=== PATIENT | male | born 1960 | race Caucasian/White ===

== ENCOUNTER 2021-10-30 14:26 | Outpatient (CLI) | payer OTHER, SELFPAY ==
--- NOTE | ~2021-10-30 | CT_ITS ---
EXAMINATION: CT abdomen pelvis wo/w con DATE: 10/30/2021 15:51 INDICATION: Hematuria. TECHNIQUE: Computed tomography (CT) of the abdomen and pelvis was performed without and with intraven ous contrast using a total of 130 mL Omnipaque-350 intravenous contrast with a double-bolus technique for simultaneous opacification of the renal parenchyma and renal collecting system. Automated exposu re control and iterative reconstruction technique were employed. The dose-length product was 1311.40 mGy-cm. COMPARISON: None FINDINGS: The visualized portions of the lung bases are clear without pneumonia or pleural effusion. The heart size is normal. No pericardial effusion. The liver, gallbladder, and spleen are normal. There is inco mplete pancreas divisum. The adrenal glands are normal. There are cysts in the kidneys measuring up t o 7 mm on the left. There is no urolithiasis. The ureters are well opacified and are normal. The blad brittney is normal. There are bilateral inguinal hernias containing fat. There is diverticulosis of the co rc without evidence of diverticulitis. There are no dilated loops of bowel. The appendix is normal. There are no pathologically enlarged lymph nodes. There is no free intraperitoneal fluid. There is de xtroscoliosis and severe spondylosis of lower lumbar spine. IMPRESSION: 1. No etiology for hematuria. Reviewed, dictated and finalized at location A. [employer]
[2021-10-30 15:28] LABS: Estimated Glomerular Filt Rate > 60
== END 2021-10-30 14:27 | disposition home or self-care (01) ==
LOC: ANHIMG 14:34
PROVIDERS: Visit Provider Urology
DX: R31.9 Hematuria, unspecified (principal)
CPT/HCPCS: 74178; Q9967

== ENCOUNTER 2024-05-11 14:43 | Emergency (ER) | payer OTHER, SELFPAY ==
--- NOTE | ~2024-05-11 | CT_ITS ---
EXAMINATION: CT abdomen pelvis w con DATE: 05/11/2024 15:25 INDICATION: Abdominal pain. TECHNIQUE: Computed tomography (CT) of the abdomen and pelvis was performed with 100 mL Omnipaque 350 intravenous contrast. Automated exposure control and iterative reconstruction technique were employe d. The dose-length product was 398.96 mGy-cm. COMPARISON: CT abdomen pelvis 10/30/2021 FINDINGS: The visualized portions of the lung bases are clear without pneumonia or pleural effusion. The heart size is normal. No pericardial effusion. The liver, gallbladder, spleen, pancreas, and adre nal glands are normal. There are cysts in the kidneys measuring up to 5 mm. There are bilateral ingui nal hernias containing fat. There is diverticulosis of the colon without evidence of diverticulitis. The appendix is normal. 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 There are no pathologically enlarged lymph node s. There is no free intraperitoneal fluid. There is lumbar levoscoliosis and severe spondylosis. IMPRESSION: 1. Bilateral inguinal hernias containing fat. 2. Perirectal varices. Reviewed, dictated and finalized at location A.
[2024-05-11 14:48] VITALS: BP 154/100; PULSE 69; RESP 16; O2SAT 99
[2024-05-11 15:06] LABS: Basophils Absolute Auto 0.1 K/mm3 (0.0-0.1); Basophils Percent Auto 0.7 % (0.2-1.2); Eosinophils Absolute Auto 0.3 K/mm3 (0-0.3); Eosinophils Percent Auto 4.5 % (0-4.4); Hematocrit 40.7 % (42.0-52.0); Hemoglobin 14.7 g/dL (14.0-18.0); Immature Granulocyte Absolute 0.01 K/mm3 (0.00-0.031); Immature Granulocyte Percent A 0.1 % (0-0.5); Lymphocytes Absolute Auto 2.14 K/mm3 (0.9-3.2); Lymphocytes Percent Auto 29.4 % (18.3-44.2); Mean Corpuscular HGB Conc 36.1 g/dl (32-36); Mean Corpuscular Hemoglobin 34.3 pg (26-34); Mean Corpuscular Volume 94.9 fl (80-100); Mean Platelet Volume 9.8 fl (7.4-10.4); Monocytes Absolute Auto 0.4 K/mm3 (0.1-0.6); Monocytes Percent Auto 5.8 % (2.6-8.5); Neutrophils Absolute Auto 4.3 K/mm3 (1.3-6.7); Neutrophils Percent Auto 59.5 % (45.5-73.1); Platelet Count Result 189 k/mm3 (150-375); Red Blood Count 4.29 M/mm3 (4.6-6.20); Red Cell Distribution Width 11.9 % (11.5-14.5); White Blood Count 7.3 K/mm3 (4.5-10.0)
[2024-05-11 15:16] LABS: Alanine Aminotransferase 20 U/L (6-50); Albumin Level 4.6 g/dL (3.5-5.1); Alkaline Phosphatase 72 U/L (38-126); Anion Gap 13 mmol/L (4-12); Aspartate Amino Transferase 30 U/L (17-59); Bilirubin,Total 0.7 mg/dL (0.2-1.3); Blood Urea Nitrogen 13 mg/dL (9-20); Calcium 9.1 mg/dL (8.4-10.2); Carbon Dioxide 20 mmol/L (22-30); Chloride 100 mmol/L (98-107); Estimated CRCL calculation 70 ml/min; Estimated Glomerular Filt Rate > 60; Glucose 90 mg/dL (65-110); Potassium 4.1 mmol/L (3.4-5.0); Sodium 133 mmol/L (137-145)
[2024-05-11 15:17] LABS: Lactic Acid Reflex 0.9 mmol/L (0.7-2.0)
--- NOTE | 2024-05-11 16:08 | ED.ABDPAIN ---
HPI - Abdominal Pain General Chief Complaint: Abdominal Pain Stated Complaint: umbilical hernia Time Seen by Provider: 05/11/24 14:50 Source: patient Mode of arrival: ambulatory Limitations: no limitations History of Present Illness HPI narrative: Patient is a 63-year-old male who presents the ED with report of left groin hernia. Patient reports he has had a known hernia to his left groin for the last 2 months. [place], but is typically able to reduce the hernia by laying flat with his left leg abducted. Reports today while driving he noticed the hernia bulge and states he had a hard time reducing it back in. Attempted laying down, but was unable to. Complained of several hours of pain to his left groin. Was concerned for bowel injury and prompted here. Patient denies nausea, vomiting, skin changes, diarrhea, constipation, fevers. Related Data Allergies Allergy/AdvReac Type Severity Reaction Status Date / Time No Known Allergies Allergy Verified 05/11/24 14:44 Review of Systems Review of Systems: CONSTITUTIONAL: Denies fever, chills, or sweats. GASTROINTESTINAL: Denies abdominal pain, nausea, vomiting MUSCULOSKELETAL: See HPI. All systems reviewed & are unremarkable except as noted in HPI and below Exam Narrative: GENERAL: Well appearing, well-nourished, non-toxic, in no acute distress. HEAD: Normocephalic, atraumatic. RESPIRATORY: Airway patent, respirations nonlabored. Clear to auscultation bilaterally, no rales, rhonchi, wheezing. CARDIOVASCULAR: Regular rate and rhythm without murmurs, rubs, or gallops. ABDOMINAL: Soft, no tenderness throughout abdomen, nondistended. Normoactive BS. Moderate-sized hernia bulge to left inguinal canal, soft, easily reducible. No overlying skin changes, erythema, warmth, ecchymosis. MUSCULOSKELETAL: Moves all extremities. No gross deformities. SKIN: Warm, dry, normal color. NEURO: A&O X3. Speech clear. Cranial nerves II-XII grossly intact. Steady gait. No ataxic movements. PSYCHIATRIC: Appropriate mood and affect. Normal interaction. Course Vital Signs Vital signs: Vital Signs Pulse Rate 69 05/11/24 14:48 Respiratory Rate 16 05/11/24 14:48 Blood Pressure 154/100 H 05/11/24 14:48 Pulse Oximetry 99 05/11/24 14:48 Pulse Rate 66 07/29/24 16:49 Respiratory Rate 18 05/11/24 16:49 Blood Pressure 145/91 H 05/11/24 16:49 Pulse Oximetry 100 05/11/24 16:49 MDM - Abdominal Pain MDM Narrative Medical decision making narrative: Patient presented to ED with concern for 2 month hx of left inguinal hernia, unable to reduce today. Vital signs are stable upon arrival. Patient in no acute distress. Laboratory studies were obtained and unremarkable. No leukocytosis. Normal lactic. CT scan of abdomen pelvis was obtained and actually showing bilateral inguinal hernias, containing fat. No evidence of bowel movement. Upon my evaluation, patient's hernia had spontaneously reduced. I had patient stand upright and hernia did recur, though soft and easily reducible. No evidence of strangulation or incarceration. No overlying skin changes. No testicular pain or swelling. Patient was updated on imaging findings, management of hernia, [id number] therapies to try. Will refer to General surgery for further evaluation. Given return precautions. He agrees with plan. Discharged in stable condition. Medical Records Attestation: I reviewed the patient's medical records. Lab Data Attestation: I reviewed the patient's lab results. 05/11/24 15:00 05/11/24 15:00 Labs: Lab Results 05/11/24 Range/Units 15:00 WBC 7.3 (4.5-10.0) K/mm3 RBC 4.29 L (4.6-6.20) M/mm3 Hgb 14.7 (14.0-18.0) g/dL Hct 40.7 L (42.0-52.0) % MCV 94.9 (80-100) fl MCH 34.3 H (26-34) pg MCHC 36.1 H (32-36) g/dl RDW 11.9 (11.5-14.5) % Plt Count 189 (150-375) k/mm3 MPV 9.8 (7.4-10.4) fl Immature Gran % (A
[2024-05-11 16:49] VITALS: BP 145/91; PULSE 66; RESP 18; O2SAT 100
== END 2024-05-11 16:50 | disposition home or self-care (01) ==
PROVIDERS: Emergency Provider Physician Assistant
DX: K40.21 Bilateral inguinal hernia, without obstruction or gangrene, recurrent (principal)
CPT/HCPCS: 36415; 74177; 80053; 83605; 85025; 99284; Q9967